=== PATIENT | male | born 1995 | race African-American/Black ===

== ENCOUNTER 2016-11-14 18:35 | Emergency (ER) | payer OTHER ==
[~2016-11-14] VITALS: Ht 185.4 cm; Wt 99.8 kg
[~2016-11-14 18:35] MED LIST: MOTRIN800 MG PO; TRAMADOL50 MG PO
--- NOTE | 2016-11-14 20:29 | ED HEAD/FACIAL INJ COMPLAINT ---
History of Present Illness General Chief Complaint: Laceration Procedure Stated Complaint: FOREHEAD LACERATION Source: patient Exam Limitations: no limitations Vital Signs & Intake/Output Vital Signs & Intake/Output Vital Signs Date Time Temp Pulse Resp B/P Pulse O2 O2 Flow FiO2 Ox Delivery Rate 11/14 2141 98.0 78 18 132/66 97 Room Air 11/14 2046 Room Air 11/14 1843 98.0 78 20 145/83 97 Room Air ED Intake and Output 11/15 0000 11/14 1200 Intake Total Output Total Balance Patient 220 lb Weight Allergies Coded Allergies: peanut (ANAPHYLAXIS 11/14/16) Reconcile Medications No Known Home Medications Triage Note: TRIAGE: PT TO ER C/C LAC TO FOREHEAD S/P INJURY 20 MIN 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 STATES HE OPENED THE CAR DOOR AND TRIED JUMPING IN THE CAR AND "GOT CAUGHT". BLEEDING CONTROLLED. -LOC. +DIZZY/LIGHTHEADED AT TIME OF INJURY. Triage Nurses Notes Reviewed? yes Onset: Abrupt Severity: mild Severity Numbers: 2 Location: frontal Method of Injury: direct blow HPI: Patient is a 21-year-old male who presents emergency and that today while entering his car he opened his door abruptly which struck the right frontal aspect of his head resulting in a laceration denies any vomiting or loss of consciousness Complains of mild headache Patient acting normal per friends who are present Tetanus is unknown (CASSIE DIANE) Past History Travel History Traveled to [place] past 21 day No Medical History Any Pertinent Medical History? 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 No (CASSIE DIANE) Review of Systems Review of Systems Constitutional: Reports: no symptoms. EENTM: Reports: no symptoms. Respiratory: Reports: no symptoms. Cardiovascular: Reports: no symptoms. GI: Reports: no symptoms. Genitourinary: Reports: no symptoms. Musculoskeletal: Reports: see HPI. Skin: Reports: no symptoms. Neurological/Psychological: Reports: no symptoms. Hematologic/Endocrine: Reports: see HPI, bleeding. Immunologic/Allergic: Reports: no symptoms. All Other Systems: Reviewed and Negative (CASSIE DIANE) Physical Exam Physical Exam General Appearance: no apparent distress, alert, comfortable Cranial Nerves: normal hearing, normal speech, PERRL Comments: Well-developed well-nourished person in no acute distress HEENT: Normal EENT exam, extraocular motion intact, no nystagmus. Pupils equally round and reactive to light and accommodation. Nose is atraumatic. External auditory canal and Tympanic membranes clear. Pharynx normal. No swelling or edema. No hemotympanum Neck: Supple, no lymphadenopathy, normal range of motion without pain or tenderness Back: Nontender, no CVA tenderness. Cardiovascular: Regular rate and rhythms no murmurs rubs or gallops, normal JVP Respiratory: Chest nontender. No respiratory distress.breath sounds clear to auscultation bilaterally Abdomen: Soft, nontender nondistended, no appreciable organomegaly. Normal bowel sounds. No ascites Extremity: No edema, no calf tenderness to palpation, normal and equal pulses. Neuro: Alert oriented x3, motor sensory normal, cranial nerves II through XII grossly intact. Negative Romberg Skin: No appreciable rash on exposed skin, skin is warm and dry. Psych: Mood and affect is normal, memory and judgment is normal. Diagram Head: 1) 1 cm superficial flap laceration no active bleeding (CASSIE DIANE) Progress Differential Diagnosis: c-spine injury, facial fracture, globe injury, ICH, orbit fracture, skull fracture Plan of Care: Current Medications Sig/Leslie Start time Last Medication Dose Stop Time Status Admin Tetanus/Diphtheria 0.5 ML ONCE ONE 11/14 2144 UNVr Toxoids Adsorbed 11/14 2145 (Decavac) No basilar skull fracture signs no vomiting no severe mechanism injury denies any severe headache patient acting at baseline no loss of consciousness that had occurred no suspicion at this time of ICH Margins were revised with suture placement bacitracin was applied (CASSIE DIANE) Departure Departure Disposition: HOME OR SELF CARE Condition: Stable Clinical Impression Primary Impression: Forehead laceration Secondary Impressions: Concussion, Minor head trauma Referrals: ZUNILDA BLANKENSHIP,LYNN Bartlett (PCP/Family) Additional Instructions: DISCUSSED begin to apply bacitracin to the area once a day for the following 5 days then stop the bacitracin to prove healing. Return to emergency room in 7 -9 days for suture removal. If you note signs of infection redness, pain, swelling, discharge return to emergency room. Once the scar begins to have developed begin OVER THE COUNTER MEDERMA If symptoms worsen return to emergency room Departure Forms: Customer Survey General Discharge Information Prescriptions: Current Visit Scripts No Known Home Medications (CASSIE DIANE) PA/VASCULAR TECHNICIAN Co-Sign Statement Statement: ED Attending supervision documentation- [] I saw and evaluated the patient. I have also reviewed all the pertinent lab results and diagnostic results. I agree with the findings and the plan of care as documented in the PA's/VASCULAR TECHNICIAN's documentation. x I have reviewed the ED Record and agree with the PA's/VASCULAR TECHNICIAN's documentation. [] Additions or exceptions (if any) to the PAs/VASCULAR TECHNICIAN's note and plan are summarized below: [] (LIZZY BLANKENSHIP,GAYATHRI) Procedures Laceration/Wound Repair Laceration/Wound Repair: Wound Location: head Wound's Depth, Shape: flap, superficial Wound Length (cm): 1 Wound Explored: clean, no foreign body removed, irrigated extensively Irrigated w/ Saline (ccs): 360 Betadine Prep? Yes Anesthesia: 1% lidocaine Volume Anesthetic (ccs): 2 Wound Repaired With: sutures Suture Size/Type: 6:0 Number of Sutures: 2 Layer Closure? No Progress: Margins were revised with suture placement patient tolerated well (CASSIE DIANE)
[2016-11-14 21:42] VITALS: BP 132/66
== END 2016-11-14 21:59 ==
LOC: ERH 18:35
DX: S01.81XA Laceration without foreign body of other part of head, initial encounter (principal); S06.0X0A Concussion without loss of consciousness, initial encounter; S09.90XA Unspecified injury of head, initial encounter; W22.8XXA Striking against or struck by other objects, initial encounter; Y93.89 Activity, other specified; Y92.9 Unspecified place or not applicable
CPT/HCPCS: 90471; 90714

== ENCOUNTER 2016-11-25 15:26 | Emergency (ER) | payer OTHER ==
[2016-11-25 15:28] VITALS: BP 138/72
--- NOTE | 2016-11-25 15:46 | ED ANIMAL BITE/WOUND CHECK ---
History of Present Illness General Chief Complaint: Suture Removal/Wound Recheck Stated Complaint: SUTURE REMOVAL Source: patient, old records Exam Limitations: no limitations Vital Signs & Intake/Output Vital Signs & Intake/Output Vital Signs Date Time Temp Pulse Resp B/P B/P Pulse O2 O2 Flow FiO2 Mean Ox Delivery Rate 11/25 1553 Room Air Room Air 11/25 1528 98.2 66 18 138/72 97 Room Air Allergies Coded Allergies: peanut (ANAPHYLAXIS 11/14/16) Reconcile Medications No Known Home Medications Triage Note: PT TO TRIAGE FOR SUTURE REMOVAL TO R FOREHEAD. SUTURES PLACED HERE IN ER 10DAYS AGO. Triage Nurses Notes Reviewed? yes Onset: Abrupt Duration: week(s): (1) Timing: no prior history Injury Environment: home No Modifying Factors: none HPI: PATIENT PRESENTS FOR SUTURE REMOVAL AFTER LAC REPAIR TO HIS RIGHT EYEBROW LAST WEEK. Past History Travel History Traveled to [place] past 21 day No Medical History Any Pertinent Medical History? 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 No Review of Systems Review of Systems Constitutional: Denies: chills, fever. EENTM: Reports: no symptoms. Respiratory: Denies: short of breath. Cardiovascular: Denies: chest pain. GI: Denies: abdominal pain. Genitourinary: Reports: no symptoms. Musculoskeletal: Reports: no symptoms. Skin: Reports: see HPI. Neurological/Psychological: Reports: no symptoms. Hematologic/Endocrine: Denies: bruising, bleeding. Immunologic/Allergic: Reports: no symptoms. All Other Systems: Reviewed and Negative Physical Exam Physical Exam General Appearance: well developed/nourished, alert, awake Head: HEALED LACERATION RIGHT EYEBROW Eyes: Bilateral: PERRL, EOMI. Ears, Nose, Throat: normal pharynx, normal ENT inspection, hearing grossly normal Neck: normal inspection, supple, JVD Respiratory: normal breath sounds Cardiovascular: regular rate/rhythm Gastrointestinal: soft, non-tender Back: normal inspection Extremities: normal range of motion Neurologic/Psych: no motor/sensory deficits, awake, alert, oriented x 3 Skin: intact, normal color, warm/dry Lymphatic: no anterior cervical franki Progress Differential Diagnosis: SUTURE REMOVAL, WOUND CHECK Plan of Care: 5 SUTURES REMOVED TOPICAL BACITRACIN APPLIED Departure Departure Time of Disposition: 1556 Disposition: HOME OR SELF CARE Condition: Stable Clinical Impression Primary Impression: Visit for wound check Secondary Impressions: Visit for suture removal Referrals: ZUNILDA BLANKENSHIP,LYNN Bartlett (PCP/Family) Additional Instructions: Put topical antibiotic over the wound until fully healed. Follow-up with your doctor as needed. Departure Forms: Customer Survey General Discharge Information Prescriptions: Current Visit Scripts No Known Home Medications
== END 2016-11-25 16:01 ==
LOC: ERH 15:26
DX: S01.111A Laceration without foreign body of right eyelid and periocular area, initial encounter (principal); X58.XXXA Exposure to other specified factors, initial encounter; Y92.9 Unspecified place or not applicable; Y93.9 Activity, unspecified
CPT/HCPCS: 99281

== ENCOUNTER 2017-12-31 22:13 | Emergency (ER) | payer OTHER ==
[~2017-12-31 22:13] MED LIST changes: +DESOXIMETASONE15 G1 TOP; +HYDROXYZINE HCL25 M3 PO; +KETOCONAZOLE15 GM TOP
--- NOTE | 2017-12-31 22:47 | ED CARDIAC/CP/PALPITATIONS ---
History of Present Illness General Chief Complaint: Chest Pain Stated Complaint: "CP,SOB, PAINFULL BREATHING" Source: patient Exam Limitations: no limitations Vital Signs & Intake/Output Vital Signs & Intake/Output Vital Signs Date Time Temp Pulse Resp B/P B/P Pulse O2 O2 Flow FiO2 Mean Ox Delivery Rate 01/01 0102 97.8 63 16 124/68 98 Room Air 12/31 2226 98.2 80 17 127/80 98 Room Air Room Air Allergies Coded Allergies: peanut (ANAPHYLAXIS 11/14/16) Reconcile Medications Desoximetasone 0.25 % CREAM..G. 1 SANAM TOP BID RASH (Reported) Hydroxyzine HCl (hydrOXYzine HCl) 25 MG TABLET 1 TAB PO BID RASH (Reported) Indomethacin 50 MG CAPSULE 1 CAP PO TID pericarditis with food Ketoconazole 2 % CREAM..G. 1 SANAM TOP BID RASH (Reported) apply to affected area(s) Triage Note: PT TO TRIAGE FOR MID STERNAL CHEST PAIN. STATES DEEP BREATHS MAKES IT WORSE. PAIN HAS BEEN PRESENT FOR 30 MINS. DENIES SOB. PT STATES HE WAS RECENTLY HERE FOR ANXIETY ATTACK, PT STATES IT DOES NOT FEEL SIMILAR Triage Nurses Notes Reviewed? yes Onset: Abrupt Duration: minute(s): (25), constant, continues in ED Timing: recent history HPI: 22-year-old male comes into emergency room complaints of chest pain on the right side is been going on for the last 25 minutes. Symptoms began on his buttock into his car. Shortness of breath with a deep breath. Denies any fever chills cough vomiting. Denies any rest or symptoms. Comes in for further evaluation. Denies any prior history of pain. Denies any drug use. (Viraj Payan) Past History Travel History Traveled to [place] past 21 day No Medical History Any Pertinent Medical History? 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 No (Viraj Payan) Review of Systems Review of Systems Constitutional: Reports: no symptoms. EENTM: Reports: no symptoms. Respiratory: Reports: see HPI. Cardiovascular: Reports: see HPI. GI: Reports: no symptoms. Genitourinary: Reports: no symptoms. Musculoskeletal: Reports: no symptoms. Skin: Reports: no symptoms. Neurological/Psychological: Reports: no symptoms. Hematologic/Endocrine: Reports: no symptoms. Immunologic/Allergic: Reports: no symptoms. All Other Systems: Reviewed and Negative (Viraj Payan) Physical Exam Physical Exam General Appearance: well developed/nourished, no apparent distress, alert, awake Head: atraumatic, normal appearance Eyes: Bilateral: normal appearance. Ears, Nose, Throat: normal ENT inspection, hearing grossly normal Neck: normal inspection Respiratory: normal breath sounds, no respiratory distress Cardiovascular: regular rate/rhythm Gastrointestinal: soft Back: normal inspection Extremities: normal inspection Neurologic/Psych: awake, alert, oriented x 3 Skin: intact, normal color Core Measures ACS in differential dx? Yes CVA/TIA Diagnosis No Sepsis Present: No Sepsis Focused Exam Completed? No All Positive = PERC Ruled Out: Positive: age < 50 years, heart rate < 100 bpm, O2 sat > 94%, no hemoptysis, no hormone use, no prior DVT or PE, no unilateral leg swellin, no surgery/trauma w/ in 4w. Wells Criteria Score: 0 (Viraj Payan) Progress Differential Diagnosis: AMI, costochondritis, musculoskeletal pain, myocarditis, pancreatitis, pericarditis, pneumonia, pneumothorax, pulmonary embolism Plan of Care: Orders Procedure Date/time Status TROPONIN LEVEL 12/31 2230 Complete COMPREHENSIVE METABOLIC PANEL 12/31 2230 Complete CBC WITHOUT DIFFERENTIAL 12/31 2230 Complete EKG 12/31 2213 Active Laboratory Tests 12/31/17 2347: Anion Gap 9, Estimated GFR > 60, BUN/Creatinine Ratio 12.3, Glucose 86, Calcium 9.4, Total Bilirubin 0.7, AST 32, ALT 51, Alkaline Phosphatase 54, Troponin I < 0.01, Total Protein 7.5, Albumin 4.3, Globulin 3.2, Albumin/Globulin Ratio 1.3, RBC 4.90, MCV 89.9, MCH 30.2, MCHC 33.5, RDW 13.2, MPV 9.8, Gran % 56.1, Lymphocytes % 30.7, Monocytes % 9.0, Eosinophils % 3.5, Basophils % 0.7, Absolute Granulocytes 3.7, Absolute Lymphocytes 2.0, Absolute Monocytes 0.6, Absolute Eosinophils 0.2, Absolute Basophils 0 Diagnostic Imaging: Viewed by Me: Radiology Read. Discussed w/RAD: Radiology Read. Radiology Impression: PATIENT: LOGAN GRANDE PRESENT AGE: 22 PATIENT ACCOUNT NO: [id number] : 95 LOCATION: [facility] ORDERING PHYSICIAN: Viraj HARPER SERVICE DATE: 12/31/17 EXAM TYPE : RAD - XRY-CHEST XRAY, TWO VIEWS EXAMINATION: CHEST 2 VIEWS CLINICAL INFORMATION: Chest pain, shortness of breath. COMPARISON: 08/29/2017. TECHNIQUE: PA and lateral views of the chest were obtained. FINDINGS: The cardiac silhouette is not enlarged. The mediastinal and hilar contours are unremarkable. There are neither pleural effusions nor pneumothoraces. There are no consolidations. The osseous structures are unremarkable. IMPRESSION: No evidence for acute disease. DICTATED BY: Nakul Encarnacion MD DATE/TIME DICTATED:12/31/172256 CUT ROLL MACHINE OPERATOR:[place] DATE/TIME TRANSCRIBED:12/31/172256 CONFIDENTIAL, DO NOT COPY WITHOUT APPROPRIATE AUTHORIZATION. <Electronically signed in Other Vendor System> SIGNED BY: Nakul Encarnacion MD 12/31/172300 Initial ED EKG: normal sinus rhythm, rate (73), ST elevation (diffuse) (Viraj Payan) Departure Departure Disposition: HOME OR SELF CARE Condition: Stable Clinical Impression Primary Impression: Pericarditis Referrals: Goldy BLANKENSHIP,Hemal French MD PHD,Kenneth Dee Additional Instructions: Take indomethacin as prescribed. Follow-up with orderlies teacher provided. Return if any concerns worsening symptoms. It is important that he follow up with orderlies teacher for outpatient echocardiogram. Please go over all results of today's visit with your primary care doctor. Contact your primary care doctor to let them know you were here in the emergency room. There may be nonspecific findings which may not be related to your visit today here in the emergency room but may require further evaluation and chronic monitoring by your primary care doctor. If you had a laceration today the chance of foreign body always remains. You should follow-up with your primary care doctor for recheck in 3-5 days for a wound check. If you had an x-ray done there is a chance that a fracture could have been missed on initial read and you should follow-up with your primary care doctor for repeat x-rays if symptoms persist. If your blood pressure was elevated here in the emergency room please have rechecked by lisa primary care doctor within the next 48. If you were prescribed a narcotic here in the emergency room or any type of controlled substances you're not allowed to drive while taking this medication or operate any type of heavy machinery. Narcotics can make you feel lightheaded dizziness nausea and can cause constipation. You may need to turkey picker a stool softener. Thank you for choosing [facility] emergency room. Please return to the emergency room immediately if you have any other concerns worsening of symptoms. Departure Forms: Customer Survey General Discharge Information Prescriptions: Current Visit Scripts Indomethacin 1 CAP PO TID #30 CAP with food Comments 01/01/2018 The patient clinically looks well. His pain has completely resolved. The EKG is concerning for ST elevation consistent with pericarditis versus early repolarization. The patient does not have the classic pericarditis story. he clinically looks well. He does not appear to be any type of distress. EKG reviewed with Dr. White and case was discussed with Dr. White. Patient does not want to stay here for any further evaluation because he has his child at home. It was recommended that he follow up with cardiology for an echocardiogram. He looks well. His vitals are stable. He was told to return immediately if any concerns worsening symptoms. Patient was started on indomethacin. (Viraj Payan) PA/COFFIN MAKER Co-Sign Statement Statement: ED Attending supervision documentation- [] I saw and evaluated the patient. I have also reviewed all the pertinent lab results and diagnostic results. I agree with the findings and the plan of care as documented in the PA's/COFFIN MAKER's documentation. [x] I have reviewed the ED Record and agree with the PA's/COFFIN MAKER's documentation. [] Additions or exceptions (if any) to the PAs/COFFIN MAKER's note and plan are summarized below: [] (Christopher BLANKENSHIP,Fab Elliott) Critical Care Note Critical Care Note Critical Care Time: non-applicable (Viraj Payan)
--- NOTE | 2017-12-31 23:01 | RADIOLOGY REPORT ---
EXAMINATION: CHEST 2 VIEWS CLINICAL INFORMATION: Chest pain, shortness of breath. COMPARISON: 08/29/2017. TECHNIQUE: PA and lateral views of the chest were obtained. FINDINGS: The cardiac silhouette is not enlarged. The mediastinal and hilar contours are unremarkable. There are neither pleural effusions nor pneumothoraces. There are no consolidations. The osseous structures are unremarkable. IMPRESSION: No evidence for acute disease.
[2018-01-01 00:15] LABS: ABSOLUTE BASOPHIL COUNT 0 /CUMM (0.0-0.2); ABSOLUTE EOSINOPHIL COUNT 0.2 /CUMM (0.0-0.7); ABSOLUTE GRANULOCYTE CT 3.7 /CUMM (1.4-6.5); ABSOLUTE MONOCYTE COUNT 0.6 /CUMM (0.10-0.60); BASOPHIL % 0.7 % (0.0-2.0); EOSINOPHIL % 3.5 % (0-5); GRANULOCYTE % 56.1 % (42.2-75.2); MEAN CORPUSCULAR HGB 30.2 PG (27.0-31.0); MEAN CORPUSCULAR HGB CONC 33.5 G/DL (33.0-37.0); MEAN CORPUSCULAR VOLUME 89.9 FL (80.0-94.0); MEAN PLATELET VOLUME 9.8 FL (7.4-10.4); PLATELET COUNT 185 /CUMM (130-400); RBC DISTRIBUTION WIDTH 13.2 % (11.5-14.5); WHITE BLOOD CELL COUNT 6.7 /CUMM (4.8-10.8)
[2018-01-01] MEDS ORDERED: INDOMETHACIN50 M1 PO (00:51)
[2018-01-01 01:02] VITALS: BP 124/68
== END 2018-01-01 01:03 ==
LOC: ERH 22:13
PROVIDERS: Physician Assistant Medical
DX: I31.9 Disease of pericardium, unspecified (principal); R07.89 Other chest pain
CPT/HCPCS: 71046; 93005; 93010; 96372; J1885